=== PATIENT | male | born 1950 | race Caucasian/White ===

== ENCOUNTER 2024-02-17 16:40 | Inpatient (IN) | payer OTHER ==
[~2024-02-17] VITALS: Ht 177.8 cm; Wt 94.5 kg
[2024-02-17] MEDS: ASPirin 81 mg TAB PO ONE (17:19)
[2024-02-17] MEDS: dilTIAZem 25 MG/5 ML VIAL IV ONE (17:20)
[2024-02-17 18:00] VITALS: PULSE 150; RESP 18; O2SAT 98
[2024-02-17 18:27] LABS: Basophils # (auto) 0.1 10 ^3/uL (0-0.2); Basophils % (auto) 1.3 % (0.0-2.0); Eosinophils # (auto) 0.2 10 ^3/uL (0-0.8); Eosinophils % (auto) 2.7 % (0.0-7.0); Hematocrit 42.2 % (41.0-53.0); Lymphocytes # (auto) 1.8 10 ^3/uL (0.4-5.4); Lymphocytes % (auto) 22.3 % (10.0-50.0); Mean Corpuscular Hemoglobin 30.2 pg (28.0-32.0); Mean Corpuscular Hgb Conc. 33.2 g/dL (32.0-36.0); Mean Corpuscular Volume 91.1 fL (80.0-100.0); Monocytes # (auto) 1.1 10 ^3/uL (0-1.3); Monocytes % (auto) 13.3 % (0.0-12.0); Neutrophils # (auto) 4.8 10 ^3/uL (1.6-8.6); Neutrophils % (auto) 60.4 % (37.0-80.0); Platelet Count (auto) 190 10^3/uL (140-450); Red Blood Cells 4.63 10^6/uL (4.5-5.90); Red Cell Distribution Width 14.2 % (11.8-14.3); White Blood Cell 7.9 10^3/uL (4.4-10.8)
[2024-02-17 18:51] LABS: Chloride 107 mmol/L (98-107); Sodium 139 mmol/L (136-145)
[2024-02-17 18:52] LABS: Anion Gap 5 (5-15); Calcium 9.2 mg/dL (8.7-10.4); Carbon Dioxide 27 mmol/L (20-31)
[2024-02-17 18:57] LABS: BUN/Creatinine Ratio 14.8 (10.0-20.0); Blood Urea Nitrogen 17 mg/dL (9-23); Glucose 91 mg/dL (74-106)
[2024-02-17] MEDS: FUROSEMIDE 40 MG/4 ML VIAL IV ONE (19:52)
[2024-02-17] MEDS: dilTIAZem 125mg/125ml BAG KIT 125 ML IV ONE (19:53)
[2024-02-17 20:17] VITALS: PULSE 157; RESP 25; O2SAT 96
[2024-02-17] MEDS: AMIODARONE BOLUS KIT 100 ML IV ONE (22:00)
[2024-02-17] MEDS: AMIODARONE 450mg/250ml AE 250 ML IV SCH (22:16)
[2024-02-17] MEDS: LEVALBUTEROL HCL 1.25 MG/3 ML NEB NEB ONE (23:02)
[2024-02-18 03:05] LABS: Urine Bacteria None Seen /hpf (None Seen)
[2024-02-18] MEDS ORDERED: TEMAZEPAM 15 MG CAP PO PRN (03:15)
[2024-02-18] MEDS ORDERED: ACETAMINOPHEN 325 MG TAB PO PRN (03:15)
[2024-02-18] MEDS ORDERED: MORPHINE SULFATE INJ 2 MG/ml SYRG IV PRN (03:15)
[2024-02-18] MEDS ORDERED: DOCUSATE SOD 100 MG CAP PO PRN (03:15)
[2024-02-18] MEDS: DIGOXIN (250MCG/ML) 2 ML AMPULE IV ONE ×3 (03:15→15:35)
[2024-02-18] MEDS ORDERED: ONDANSETRON HCL 4 MG/2 ML VIAL IV PRN (03:15)
[2024-02-18] MEDS ORDERED: NITROGLYCERIN 0.4 MG SL TAB SL PRN (03:15)
[2024-02-18 03:22] LABS: Urine Blood 1+ /uL (Negative); Urine Clarity Clear (Clear); Urine Color Colorless (Yellow); Urine Protein, UAD Negative (Negative); Urine Specific Gravity 1.008 (1.001-1.035); Urine Urobilinogen Normal (Negative); Urine WBC <1 /hpf (0 - 3)
[2024-02-18] MEDS ORDERED: LEVALBUTEROL HCL 1.25 MG/3 ML NEB NEB SCH (06:00)
[2024-02-18] MEDS: LEVALBUTEROL HCL 1.25 MG/3 ML NEB NEB ONE (06:51)
[2024-02-18] MEDS: AMIODARONE 450mg/250ml AE 250 ML IV SCH ×2 (07:40→17:16)
[2024-02-18 08:36] VITALS: PULSE 135; RESP 15; O2SAT 96
[2024-02-18] MEDS: ENOXAPARIN SOD 100 MG/1 ML SYRINGE SC SCH (09:38)
[2024-02-18] MEDS: PANTOPRAZOLE 40 MG TAB PO SCH (09:39)
[2024-02-18] MEDS: FUROSEMIDE 40 MG/4 ML VIAL IV ONE (09:39)
[2024-02-18 10:40] LABS: Alanine Aminotransferase 49 U/L (7-40); Albumin 3.8 g/dL (3.2-4.8); Alkaline Phosphatase 103 U/L (46-116); Anion Gap 4 (5-15); Aspartate Aminotransferase 26 U/L (13-40); BUN/Creatinine Ratio 15.4 (10.0-20.0); Bilirubin, Total 1.6 mg/dL (0.2-1.0); Blood Urea Nitrogen 16 mg/dL (9-23); Calcium 9.2 mg/dL (8.7-10.4); Carbon Dioxide 29 mmol/L (20-31); Chloride 108 mmol/L (98-107); Glucose 139 mg/dL (74-106); Potassium 3.9 mmol/L (3.5-5.1); Sodium 141 mmol/L (136-145)
[2024-02-18] MEDS: IOHEXOL 350 MG/ML 100ML IJ ONE (12:36)
[2024-02-18] MEDS ORDERED: LEVALBUTEROL HCL 1.25 MG/3 ML NEB NEB PRN (15:30)
[2024-02-18] MEDS: dilTIAZem 25 MG/5 ML VIAL IV ONE (17:16)
[2024-02-18] MEDS: FUROSEMIDE 40 MG/4 ML VIAL IV SCH (18:17)
[2024-02-18 19:20] VITALS: PULSE 130; RESP 21; O2SAT 98
[2024-02-18 20:39] VITALS: BP_SYST 152; BP_SYST 155; BP_DIAS 81; BP_DIAS 84; PULSE 133; PULSE 139; RESP 19; RESP 20; TEMP 97.7; TEMP 97.8; O2SAT 94
[2024-02-18 20:55] VITALS: BP 127/81; PULSE 133; RESP 19; TEMP 97.7; O2SAT 94
[2024-02-18 22:00] VITALS: BP 152/81; PULSE 133; RESP 19; TEMP 97.7; O2SAT 94
[2024-02-19] VITALS (18 sets, daily range): BP systolic 107–148; BP diastolic 69–101; PULSE 62–150; RESP 15–23; TEMP 96.9–98.3; O2SAT 93–99
[2024-02-19] MEDS: MORPHINE SULFATE INJ 2 MG/ml SYRG IV PRN (00:24)
[2024-02-19] MEDS: AMIODARONE 450mg/250ml AE 250 ML IV SCH ×2 (03:54→07:45)
[2024-02-19] MEDS ORDERED: METOPROLOL TARTRATE 1MG/1ML-5ML VIAL IV ONE (06:00)
[2024-02-19] MEDS ORDERED: METOPROLOL TARTRATE 1MG/1ML-5ML VIAL IV PRN ×2 (06:30→06:45)
[2024-02-19] MEDS ORDERED: LEVALBUTEROL HCL 1.25 MG/3 ML NEB NEB PRN (06:45)
[2024-02-19 07:20] LABS: Basophils # (auto) 0.1 10 ^3/uL (0-0.2); Basophils % (auto) 1.2 % (0.0-2.0); Eosinophils # (auto) 0.2 10 ^3/uL (0-0.8); Eosinophils % (auto) 2.5 % (0.0-7.0); Hematocrit 42.6 % (41.0-53.0); Hemoglobin 14.4 g/dL (13.5-17.5); Lymphocytes # (auto) 1.5 10 ^3/uL (0.4-5.4); Lymphocytes % (auto) 19.9 % (10.0-50.0); Mean Corpuscular Hemoglobin 30.7 pg (28.0-32.0); Mean Corpuscular Hgb Conc. 33.8 g/dL (32.0-36.0); Mean Corpuscular Volume 90.9 fL (80.0-100.0); Monocytes # (auto) 0.9 10 ^3/uL (0-1.3); Monocytes % (auto) 12.1 % (0.0-12.0); Neutrophils # (auto) 4.7 10 ^3/uL (1.6-8.6); Neutrophils % (auto) 64.3 % (37.0-80.0); Nucleated Red Blood Cells % 0.2 %; Platelet Count (auto) 173 10^3/uL (140-450); Red Blood Cells 4.68 10^6/uL (4.5-5.90); Red Cell Distribution Width 13.8 % (11.8-14.3); White Blood Cell 7.4 10^3/uL (4.4-10.8)
[2024-02-19 07:44] LABS: Alanine Aminotransferase 44 U/L (7-40); Albumin 3.6 g/dL (3.2-4.8); Alkaline Phosphatase 100 U/L (46-116); Anion Gap 6 (5-15); Aspartate Aminotransferase 26 U/L (13-40); BUN/Creatinine Ratio 12.5 (10.0-20.0); Bilirubin, Total 1.9 mg/dL (0.2-1.0); Blood Urea Nitrogen 12 mg/dL (9-23); Calcium 9.3 mg/dL (8.7-10.4); Carbon Dioxide 32 mmol/L (20-31); Chloride 104 mmol/L (98-107); Glucose 90 mg/dL (74-106); Potassium 3.3 mmol/L (3.5-5.1); Sodium 142 mmol/L (136-145); Total Protein 5.8 g/dL (5.7-8.2)
[2024-02-19] MEDS: LIDOCAINE VISCOUS 2% 15ML UD MT STA (10:08)
[2024-02-19] MEDS: fentaNYL CITRATE 100 MCG/2 ML VL ONE (10:10)
[2024-02-19] MEDS: MIDAZOLAM HCL 2MG/2ML 2ml VIAL (1mg/ml) ONE (10:10)
[2024-02-19] MEDS: LIDOCAINE VISCOUS 2% 15ML UD ONE (10:12)
[2024-02-19] MEDS: MIDAZOLAM HCL 2MG/2ML 2ml VIAL (1mg/ml) IV STA (10:22)
[2024-02-19] MEDS: fentaNYL CITRATE 100 MCG/2 ML VL IV STA (10:22)
[2024-02-19] MEDS: POTASSIUM EFFERVESENT TAB 25 MEQ PO ONE (12:37)
[2024-02-19] MEDS: DIGOXIN 0.125 MG TAB PO SCH (12:37)
[2024-02-19] MEDS: AMIODARONE 450mg/250ml AE 250 ML IV ONE (17:36)
[2024-02-19] MEDS: LEVALBUTEROL HCL 1.25 MG/3 ML NEB NEB PRN (19:06)
[2024-02-19] MEDS: AMIODARONE HCL 200 MG TAB PO SCH (20:54)
[2024-02-20] VITALS (11 sets, daily range): BP systolic 125–158; BP diastolic 65–90; PULSE 8–80; RESP 18–20; TEMP 97.5–98.6; O2SAT 90–96
[2024-02-20] MEDS: AMIODARONE 450mg/250ml AE 250 ML IV SCH ×2 (01:09→08:15)
[2024-02-20] MEDS: POTASSIUM EFFERVESENT TAB 25 MEQ PO ONE (08:55)
[2024-02-20] MEDS: APIXABAN 5 MG TAB PO SCH (08:56)
[2024-02-20 09:27] LABS: Basophils # (auto) 0.1 10 ^3/uL (0-0.2); Eosinophils # (auto) 0.1 10 ^3/uL (0-0.8); Eosinophils % (auto) 1.1 % (0.0-7.0); Hematocrit 45.3 % (41.0-53.0); Hemoglobin 14.9 g/dL (13.5-17.5); Lymphocytes % (auto) 13.4 % (10.0-50.0); Mean Corpuscular Hemoglobin 29.9 pg (28.0-32.0); Mean Corpuscular Hgb Conc. 32.9 g/dL (32.0-36.0); Mean Corpuscular Volume 90.7 fL (80.0-100.0); Monocytes # (auto) 0.9 10 ^3/uL (0-1.3); Monocytes % (auto) 12.2 % (0.0-12.0); Neutrophils # (auto) 5.1 10 ^3/uL (1.6-8.6); Neutrophils % (auto) 72.3 % (37.0-80.0); Nucleated Red Blood Cells % 0.1 %; Platelet Count (auto) 176 10^3/uL (140-450); Red Cell Distribution Width 13.8 % (11.8-14.3); White Blood Cell 7.1 10^3/uL (4.4-10.8)
[2024-02-20 09:53] LABS: Alanine Aminotransferase 42 U/L (7-40); Alkaline Phosphatase 107 U/L (46-116); Anion Gap 4 (5-15); Aspartate Aminotransferase 26 U/L (13-40); BUN/Creatinine Ratio 11.8 (10.0-20.0); Blood Urea Nitrogen 11 mg/dL (9-23); Calcium 9.1 mg/dL (8.7-10.4); Carbon Dioxide 33 mmol/L (20-31); Chloride 103 mmol/L (98-107); Glucose 108 mg/dL (74-106); Magnesium 1.8 mg/dL (1.6-2.6); Potassium 3.4 mmol/L (3.5-5.1); Sodium 140 mmol/L (136-145)
[2024-02-20 09:54] LABS: Bilirubin, Total 1.7 mg/dL (0.2-1.0); Phosphorus 3.3 mg/dL (2.4-5.1); Total Protein 6.2 g/dL (5.7-8.2)
[2024-02-20] MEDS: HYDROcodone-ACET 5/325MG TAB PO PRN (18:33)
[2024-02-20] MEDS: AMIODARONE HCL 200 MG TAB PO SCH (21:17)
[2024-02-21] VITALS (9 sets, daily range): BP systolic 118–159; BP diastolic 54–80; PULSE 58–70; RESP 16–20; TEMP 98–98.7; O2SAT 90–99
[2024-02-21] MEDS ORDERED: FUROSEMIDE 20 MG TAB PO SCH (10:00)
[2024-02-21] MEDS: POTASSIUM CHL 20 Meq TABLET PO SCH (11:05)
[2024-02-21] MEDS: FUROSEMIDE 20 MG TAB PO SCH (11:05)
[2024-02-21] MEDS ORDERED: AMIO200T13 PO (12:40)
[2024-02-21] MEDS ORDERED: FURO20TA4 PO (12:40)
[2024-02-21] MEDS ORDERED: DIGO1TAB48 PO (12:40)
[2024-02-21] MEDS ORDERED: APIX5TAB PO (12:40)
== END 2024-02-21 14:26 | disposition home or self-care (01) | DRG 291 ==
LOC: EDBD 16:40 → ER 16:44 → TELE 02-18 03:05 → TELE-WESTW 02-18 20:39
PROVIDERS: ADMIT Nurse Practitioner; ATTEND Nurse Practitioner
PROC: 5A2204Z Restoration of Cardiac Rhythm, Single (ICD-10-PCS; principal; 2024-02-19)
PROC: B24BZZ4 Ultrasonography of Heart with Aorta, Transesophageal (ICD-10-PCS; 2024-02-19)
DX: I11.0 Hypertensive heart disease with heart failure (principal); I50.33 Acute on chronic diastolic (congestive) heart failure; J98.11 Atelectasis; I47.20 Ventricular tachycardia, unspecified; K29.70 Gastritis, unspecified, without bleeding; I48.91 Unspecified atrial fibrillation; K59.00 Constipation, unspecified; E66.9 Obesity, unspecified; F17.210 Nicotine dependence, cigarettes, uncomplicated; I07.1 Rheumatic tricuspid insufficiency; K74.60 Unspecified cirrhosis of liver; F12.10 Cannabis abuse, uncomplicated; Z79.899 Other long term (current) drug therapy; Z79.01 Long term (current) use of anticoagulants; Z68.29 Body mass index [BMI] 29.0-29.9, adult; Z87.442 Personal history of urinary calculi
CPT/HCPCS: 36415; 71045; 71260; 74177; 80048; 80053; 81001; 83735; 83880; 84100; 84443; 84484; 85025; 85379; 93005; 93306; 93312; 93970; 94640; 96365; 96366; 96375; 96376; 99152; 99291; G0378; J2250